=== PATIENT | female | born 1990 | race Caucasian/White ===

== ENCOUNTER 2017-03-21 15:38 | Emergency (ER) | payer MEDICARE ==
[2017-03-21] MEDS ORDERED: ACETAMINOPHEN 325 MG TABLET PO ONE ×3 (16:04→21:21)
[2017-03-21] MEDS ORDERED: NORMAL SALINE 1000 ML 1,000 ML IV ONE ×2 (16:35→19:03)
[2017-03-21] MEDS ORDERED: ONDANSETRON HCL INJ/PF 4 MG/2 ML SDV IV ONE (16:36)
[2017-03-21] MEDS ORDERED: CEFTRIAXONE RTU 1 GM/D5W 50 ML IV ONE (17:20)
--- NOTE | 2017-03-21 17:27 | ER Document Report ---
HPI - HPI Patient complains to provider of: Fever and cough Onset: Other - 3 dys Onset/Duration: Persistent Quality of pain: Achy Pain Level: 3 Context: Patient presents complaining of productive cough with fever that was as high as 103 today. Patient reports she has had symptoms for the past 3 days. Patient does report nausea, vomiting and diarrhea. Patient states she vomited 3 times today and had diarrhea 6 times today. Patient does complain of right-sided chest discomfort. Patient without any history of cardiac disease in the past although does report a previous history of bronchiectasis. Patient is here with her daughter who has had a fever as well. Associated Symptoms: Body/muscle aches, Chest pain, Productive cough, Diarrhea, Fever, Nausea, Vomiting Exacerbated by: Denies Relieved by: Denies Similar symptoms previously: No Recently seen / treated by doctor: No - ROS ROS below otherwise negative: Yes Systems Reviewed and Negative: Yes All other systems reviewed and negative - CONSTITUTIONAL Constitutional: REPORTS: Fever - EENT EENT: DENIES: Sore Throat - CARDIOVASCULAR Cardiovascular: REPORTS: Chest pain - rt chest - RESPIRATORY Respiratory: REPORTS: Coughing. DENIES: Trouble Breathing - GASTROINTESTINAL Gastrointestinal: REPORTS: Nausea, Patient vomiting, Diarrhea. DENIES: Abdominal Pain - MUSCULOSKELETAL Musculoskeletal: DENIES: Back Pain - DERM Skin Color: Normal Skin Problems: None <DWAINE JACOME - Last Filed: 03/23/17 06:47> Past Medical History - General Information source: Patient - Social History Smoking Status: Never Smoker Chew tobacco use (# tins/day): No Frequency of alcohol use: None Drug Abuse: None Lives with: Family Family History: Reviewed & Not Pertinent Pulmonary Medical History: Reports: Hx Asthma, Other - bronchiectasis Endocrine Medical History: Denies: Hx Diabetes Mellitus Type 1, Hx Diabetes Mellitus Type 2 Renal/ Medical History: Denies: Hx Peritoneal Dialysis Surgical Hx: Negative <DWAINE JACOME - Last Filed: 03/23/17 06:47> Vertical Provider Document - CONSTITUTIONAL Agree With Documented VS: Yes Exam Limitations: No Limitations General Appearance: WD/WN, No Apparent Distress - INFECTION CONTROL TRAVEL OUTSIDE OF THE [place] IN LAST 30 DAYS: No - HEENT HEENT: Atraumatic, Normocephalic. negative: Pharyngeal Exudate, Pharyngeal Tenderness, Pharyngeal Erythema, Tympanic Membrane Red, Tympanic Membrane Bulging - NECK Neck: Normal Inspection, Supple. negative: Lymphadenopathy-Left, Lymphadenopathy-Right - RESPIRATORY Respiratory: Rhonchi, Other - coarse breath sounds right. negative: Chest Non- Tender - right anterior chest wall tenderness O2 Sat by Pulse Oximetry: 97 - CARDIOVASCULAR Cardiovascular: Regular Rhythm, No Murmur, Tachycardia - GI/ABDOMEN Gastrointestinal: Abdomen Soft, Abdomen Non-Tender - BACK Back: Normal Inspection - MUSCULOSKELETAL/EXTREMETIES Musculoskeletal/Extremeties: AMADOR RICHARDSON - NEURO Level of Consciousness: Awake, Alert, Appropriate Motor/Sensory: No Motor Deficit - DERM Integumentary: Warm, Dry Notes: extensive scarring to face, trunk and bilat upper extremities <DWAINE JACOME - Last Filed: 03/23/17 06:47> Course - Re-evaluation Re-evalutation: 03/21/17 23:54 Patient has been reevaluated twice. No difficulty breathing, patient states she feels great. Patient has been rehydrated, tachycardia almost completely resolved, she actually is quite well-appearing. Patient does have leukocytosis , right-sided pneumonia, complaint of chest pain on the right side, bronchiectasis history. EKG with no T-wave inversions or ST segment concerns in consecutive leads. Patient does not have history of hospital admissions, pneumonia in the past, or other concerning additional history. Patient has been given IV antibiotics. Patient is requesting to be discharged, states she feels good and she wants to go home. No hypoxia, VBG unremarkable, lactic acid unremarkable. Patient does agree that if she worsens in any way that she will return including spiking fever, difficulty breathing, or any other concerns. - Vital Signs Vital signs: Temp Pulse Resp BP Pulse Ox 99.4 F 112 H 24 H 101/58 L 97 03/21/17 19:59 03/21/17 19:59 03/21/17 19:59 03/21/17 19:59 03/21/17 21:30 - Laboratory Result Diagrams: 03/21/17 16:35 03/21/17 21:02 Laboratory results interpreted by me: 03/21/17 03/21/17 03/21/17 16:35 19:19 19:50 WBC 18.2 H Seg Neutrophils % 87.5 H Lymphocytes % 7.4 L Absolute Neutrophils 16.0 H VBG pH 7.43 H Creatinine Urine Protein 30 H Urine Ketones 80 H Urine Blood SMALL H Urine Urobilinogen 2.0 H Ur Leukocyte Esterase SMALL H 03/21/17 21:02 WBC Seg Neutrophils % Lymphocytes % Absolute Neutrophils VBG pH Creatinine 0.49 L Urine Protein Urine Ketones Urine Blood Urine Urobilinogen Ur Leukocyte Esterase <BENSON CABALLERO - Last Filed: 03/21/17 23:54> - Re-evaluation Re-evalutation: 03/21/17 1630 Resting comfortably, respirations unlabored. Staff advised of orders replaced. 03/21/17 17:15 Patient continues tachycardic, staff having difficulty with patient's IV, as well as blood draw. 03/21/17 19:00 IV antibiotic infusing as ordered. Patient nontoxic in appearance at this time. Patient mildly tachycardic, IV fluids infusing slowly due to patient's IV access. Dr. Strickland consulted regarding patient presentation, agrees with plan for IV Levaquin, although states that renal function should be checked initially. 03/21/17 21:00 RN at bedside for additional IV placement, bedside report and handout given to Benson LUCAS. RN advised the patient's status and need for monitored bed. - Vital Signs Vital signs: Temp Pulse Resp BP Pulse Ox 100.9 F H 125 H 20 129/78 H 97 03/21/17 15:48 03/21/17 15:48 03/21/17 15:48 03/21/17 15:48 03/21/17 15:48 - Laboratory Result Diagrams: 03/21/17 16:35 03/21/17 21:02 <DWAINE JACOME - Last Filed: 03/23/17 06:47> Discharge <BENSON CABALLERO - Last Filed: 03/21/17 23:54> <DWAINE JACOME - Last Filed: 03/23/17 06:47> - Discharge Clinical Impression: Fever Qualifiers: Fever type: unspecified Qualified Code(s): R50.9 - Fever, unspecified Pneumonia Qualifiers: Pneumonia type: due to unspecified organism Laterality: right Lung location: unspecified part of lung Qualified Code(s): J18.9 - Pneumonia, unspecified organism Chest pain Qualifiers: Chest pain type: unspecified Qualified Code(s): R07.9 - Chest pain, unspecified Condition: Stable Disposition: HOME, SELF-CARE Additional Instructions: Your workup is consistent with pneumonia. Take the Levaquin antibiotic as prescribed, rest, drink plenty of fluids, take Tylenol or similar medication for fever if needed. Follow-up closely with primary care. Return immediately to the emergency department if you worsen in any way including difficulty breathing, spiking fever, or any other concerning symptoms. Prescriptions: Levofloxacin [Levaquin 750 mg Tablet] 750 mg PO DAILY #5 tablet
[2017-03-21 18:36] LABS: ABSOLUTE LYMPHOCYTES (AUTO) 1.3 10^3/uL (0.5-4.7); ABSOLUTE MONOCYTES (AUTO) 0.9 10^3/uL (0.1-1.4); BASOPHILS % (AUTO) 0.3 % (0-2); EOSINOPHILS % (AUTO) 0.1 % (0-6); HEMATOCRIT 45.8 % (36.0-47.0); HEMOGLOBIN 14.9 g/dL (12.0-15.5); HGB HCT DIFFERENCE -1.1; LYMPHOCYTES % (AUTO) 7.4 % (13-45); MEAN CORPUSCULAR HEMOGLOBIN 29.3 pg (27.0-33.4); MEAN CORPUSCULAR HGB CONC 32.6 g/dL (32.0-36.0); MEAN CORPUSCULAR VOLUME 90 fl (80-97); MONOCYTES % (AUTO) 4.7 % (3-13); RED BLOOD COUNT 5.09 10^6/uL (3.72-5.28); RED CELL DISTRIBUTION WIDTH 13.3 % (11.5-14.0); SEGMENTED NEUTROPHILS % (AUTO) 87.5 % (42-78); WHITE BLOOD COUNT 18.2 10^3/uL (4.0-10.5)
--- NOTE | 2017-03-21 19:45 | RADIOLOGY REPORT (SQ) ---
EXAM DESCRIPTION: CHEST PA/LAT COMPLETED DATE/TIME: 03/21/2017 7:15 pm REASON FOR STUDY: cough, fever, hx bronchiectasis COMPARISON: None. EXAM PARAMETERS: NUMBER OF VIEWS: two views TECHNIQUE: Digital Frontal and Lateral radiographic views of the chest acquired. RADIATION DOSE: NA LIMITATIONS: none FINDINGS: LUNGS AND PLEURA: Right middle lobe pneumonia, with volume loss consolidation and air bron chograms along the right heart border on frontal view. Remainder of the lungs are well inflated. Minimal left retrocardiac atelectasis. No pleural effusio ns. No pneumothorax. MEDIASTINUM AND HILAR STRUCTURES: No masses or contour abnormalities. HEART AND VASCULAR STRUCTURES: Heart normal size. No evidence for failure. BONES: No acute findings. HARDWARE: Clips right upper quadrant post cholecystectomy. Inferior vena cava filter present OTHER: No other significant finding. IMPRESSION: Right middle lobe pneumonia. Minimal bandlike atelectasis left lung base. TECHNICAL DOCUMENTATION: JOB ID: [id number] [email or web address]- All Rights Reserved
[2017-03-21 19:46] LABS: APPEARANCE,URINE SLIGHTLY-CLOUDY; BILIRUBIN,URINE NEGATIVE (NEGATIVE); GLUCOSE, URINE NEGATIVE (NEGATIVE); KETONES,URINE 80 mg/dL (NEGATIVE); LEUKOCYTE ESTERASE,URINE SMALL (NEGATIVE); NITRITE,URINE NEGATIVE (NEGATIVE); PROTEIN,URINE 30 mg/dL (NEGATIVE); URINE SPECIFIC GRAVITY 1.033
[2017-03-21 20:07] LABS: VENOUS BLOOD BASE EXCESS 0.4 mmol/L; VENOUS BLOOD HCO3 24.5 mmol/L (20-32); VENOUS BLOOD PCO2 37.8 mmHg (35-63); VENOUS BLOOD PH 7.43 (7.30-7.42)
[2017-03-21 21:31] LABS: ALANINE AMINOTRANSFERASE 29 U/L (9-52); ALBUMIN 4.2 g/dL (3.5-5.0); ALKALINE PHOSPHATASE 80 U/L (38-126); ANION GAP 16 (5-19); ASPARTATE AMINO TRANSFERASE 17 U/L (14-36); BILIRUBIN,DIRECT 0.4 mg/dL (0.0-0.4); BILIRUBIN,TOTAL 0.8 mg/dL (0.2-1.3); BLOOD UREA NITROGEN 13 mg/dL (7-20); CALCIUM 9.3 mg/dL (8.4-10.2); CARBON DIOXIDE 22 mmol/L (22-30); CHLORIDE 100 mmol/L (98-107); CREATININE RESULT 0.49 mg/dL (0.52-1.25); GLUCOSE 94 mg/dL (75-110); POTASSIUM 3.7 mmol/L (3.6-5.0); SODIUM 138.2 mmol/L (137-145); TOTAL PROTEIN 7.7 g/dL (6.3-8.2)
[2017-03-21] MEDS ORDERED: LEVOFLOXACIN 500 MG/D5W RTU 100 ML IV ONE (21:47)
[2017-03-21 23:19] VITALS: BP 114/69
--- NOTE | 2017-03-22 10:22 | EKG REPORT ---
SEVERITY:- BORDERLINE ECG - SINUS TACHYCARDIA INFERIOR Q WAVES, PROBABLY NORMAL VARIATION BORDERLINE T ABNORMALITIES, ANTERIOR LEADS : Confirmed by: Luiza Hicks MD 22-Mar-2017 10:21:34
== END 2017-03-21 23:50 | disposition home or self-care (01) ==
LOC: ER 15:38
DX: J18.9 Pneumonia, unspecified organism (principal); R50.9 Fever, unspecified; R00.0 Tachycardia, unspecified; R05 Cough; R11.2 Nausea with vomiting, unspecified; R19.7 Diarrhea, unspecified; R07.9 Chest pain, unspecified; D72.829 Elevated white blood cell count, unspecified; J45.909 Unspecified asthma, uncomplicated
CPT/HCPCS: 93005; 99284; 96361; 96375; 96365; 96367; 36415; 87040; 87086; 84703; 85025; 85610; 80053; 81001; 82803; 83605; 71020; 93010; A9270; J1956; J2405; J7030; J0696